=== PATIENT | female | born 1960 | race Caucasian/White ===

== ENCOUNTER 2017-08-28 13:06 | Emergency (ER) | payer OTHER, BC ==
[~2017-08-28] VITALS: Ht 180.3 cm; Wt 108.9 kg
[2017-08-28] MEDS ORDERED: CYCL10 PO (13:31)
[2017-08-28] MEDS ORDERED: LOSA25 (13:39)
[2017-08-28] MEDS ORDERED: Prozac20 MG PO (13:39)
[2017-08-28] MEDS ORDERED: CYCL10 (13:40)
[2017-08-28] MEDS ORDERED: ESTR2 (13:40)
[2017-08-28] MEDS ORDERED: HYDCHL25 (13:40)
[2017-08-28] MEDS ORDERED: TOPI100 (13:40)
== END 2017-08-28 13:41 | disposition home or self-care (01) ==
LOC: ER 13:06
DX: M54.16 Radiculopathy, lumbar region (principal)
CPT/HCPCS: 96372; 99283; J1885

== ENCOUNTER 2017-09-13 17:53 | Emergency (ER) | payer OTHER, BC ==
[~2017-09-13] VITALS: Ht 180.3 cm; Wt 108.9 kg
[~2017-09-13 17:53] MED LIST: CYCL10; CYCL10 PO; ESTR2; HYDCHL25; LOSA25; Prozac20 MG PO; TOPI100
[2017-09-13] MEDS ORDERED: Percocet 5-3251 EACH PO (18:50)
== END 2017-09-13 18:56 | disposition home or self-care (01) ==
LOC: ER 17:53
DX: S83.92XA Sprain of unspecified site of left knee, initial encounter (principal); Z79.899 Other long term (current) drug therapy; X58.XXXA Exposure to other specified factors, initial encounter; Y93.01 Activity, walking, marching and hiking; Y92.828 Other wilderness area as the place of occurrence of the external cause
CPT/HCPCS: 73562-LT; 99283

== ENCOUNTER → 2018-03-19 | Outpatient (CLI) | payer BC ==
[~2018-03-19] MED LIST changes: +Percocet 5-3251 EACH PO
== END | disposition home or self-care (01) ==
LOC: PLD 13:54 → LAB SHORT 13:54
DX: L60.2 Onychogryphosis (principal); B35.1 Tinea unguium
CPT/HCPCS: 88305; 88312

== ENCOUNTER 2018-09-26 09:49 | Emergency (ER) | payer BC ==
[~2018-09-26] VITALS: Ht 180.3 cm; Wt 115.7 kg
[2018-09-26] MEDS ORDERED: LOSARTAN-HCTZ1 EACH (10:26)
[2018-09-26] MEDS ORDERED: CETI5 (10:26)
[2018-09-26] MEDS ORDERED: Norco 5-325 Ta1 EACH PO (10:55)
[2018-09-26] MEDS ORDERED: CYCL10 PO (10:55)
[2018-09-26] MEDS ORDERED: IBUP600 PO (10:55)
== END 2018-09-26 11:17 | disposition home or self-care (01) ==
LOC: ER 09:49
DX: M54.42 Lumbago with sciatica, left side (principal); Z79.899 Other long term (current) drug therapy; Z87.891 Personal history of nicotine dependence
CPT/HCPCS: 96372; 99283-25; A9270-GY; J1885

== ENCOUNTER 2021-07-13 14:28 | Emergency (ER) | payer OTHER ==
[~2021-07-13] VITALS: Ht 180.3 cm; Wt 113.4 kg
[~2021-07-13 14:28] MED LIST changes: +CETI5; +IBUP600 PO; +LOSARTAN-HCTZ1 EACH; +Norco 5-325 Ta1 EACH PO
[2021-07-13] MEDS ORDERED: HYDR1TAB94 PO (15:58)
[2021-07-13] MEDS ORDERED: CEPH500 PO (15:58)
== END 2021-07-13 17:04 | disposition home or self-care (01) ==
LOC: ER 14:28
DX: S02.2XXA Fracture of nasal bones, initial encounter for closed fracture (principal); S80.219A Abrasion, unspecified knee, initial encounter; W22.09XA Striking against other stationary object, initial encounter; Y92.007 Garden or yard of unspecified non-institutional (private) residence as the place of occurrence of the external cause; Z79.899 Other long term (current) drug therapy; Z87.891 Personal history of nicotine dependence
CPT/HCPCS: 70486; 72125; 90714; A9270; J2405; J3010

== ENCOUNTER 2022-05-28 09:55 | Day surgery (SDC) | payer OTHER ==
[~2022-05-28] VITALS: Ht 180.3 cm; Wt 109.6 kg
[~2022-05-28 09:55] MED LIST changes: +CEPH500 PO; +HYDR1TAB94 PO
[2022-05-28] MEDS ORDERED: ALLEGRA ALLERG180 MG (10:14)
== END 2022-05-28 12:46 | disposition home or self-care (01) ==
LOC: ORSCSDS 09:55
PROVIDERS: Internal Medicine Gastroenterology
PROC: 0DJD8ZZ Inspection of Lower Intestinal Tract, Via Natural or Artificial Opening Endoscopic (ICD-10-PCS; principal; 2022-05-28 11:15)
DX: K62.5 Hemorrhage of anus and rectum (principal); K57.30 Diverticulosis of large intestine without perforation or abscess without bleeding; K64.8 Other hemorrhoids; K64.4 Residual hemorrhoidal skin tags; I10 Essential (primary) hypertension; G47.33 Obstructive sleep apnea (adult) (pediatric); F41.8 Other specified anxiety disorders; Z79.899 Other long term (current) drug therapy
CPT/HCPCS: J2704; J7120